=== PATIENT | female | born 1935 | race Caucasian/White ===

== ENCOUNTER → 2023-11-19 12:46 | Outpatient (REF) | payer MEDICARE, SELFPAY ==
[2023-11-19 15:10] LABS: Blood Urea Nitrogen 29 mg/dl (7-17); Calcium 10.6 mg/dl (8.4-10.2); Carbon Dioxide 34 mmol/L (22-30); Chloride 97 mmol/L (98-107); Glucose 134 mg/dl (70-99); Phosphorus 4.1 mg/dl (2.5-4.5); Potassium 3.7 mmol/L (3.5-5.1); Sodium 139 mmol/L (135-145); eGFR > 60.00
== END ==
LOC: HWLAB 12:46
PROVIDERS: ATTENDING PHYSICIAN Internal Medicine Geriatric Medicine
DX: E87.6 Hypokalemia (principal)
CPT/HCPCS: 36415; 80069; 83735

== ENCOUNTER 2024-03-10 06:36 | Day surgery (SDC) | payer MEDICARE, SELFPAY ==
[2024-03-06 09:40] VITALS: BMI 21.5
[2024-03-10 08:39] VITALS: BMI 22.7
[2024-03-10 08:44] VITALS: BMI 22.7
[2024-03-10 08:45] VITALS: BP 144/79
[2024-03-10 08:51] LABS: Urine Albumin Negative (Neg - Trace); Urine Bilirubin Negative (Negative); Urine Character Clear (Clear); Urine Color Yellow; Urine Glucose Negative (Negative); Urine Ketone Negative (Negative); Urine Leukocyte 1+ (Negative); Urine Nitrite Negative (Negative); Urine Occult Blood Negative (Negative); Urine Urobilinogen Negative (Neg - 1+)
[2024-03-10] MEDS: NORMOSOL-R 1000 IV (08:55)
[2024-03-10 09:20] LABS: Urine Bacteria Few (Negative); Urine Squamous Cell 0-2 /LPF (Few)
[2024-03-10 09:21] LABS: Urine Red Blood Cell 0-2 /HPF (0-2); Urine White Cell 0-2 /HPF (0-5)
[2024-03-10 10:23] VITALS: BP 125/66
[2024-03-10 10:30] VITALS: BP 130/73
[2024-03-10 10:45] VITALS: BP 158/76
[2024-03-10 11:00] VITALS: BP 161/76
[2024-03-10 11:15] VITALS: BP 146/64
== END 2024-03-10 11:44 | disposition home or self-care (01) ==
LOC: SDS 06:36
PROVIDERS: ATTENDING PHYSICIAN Urology
DX: T83.110A Breakdown (mechanical) of urinary electronic stimulator device, initial encounter (principal); Y83.1 Surgical operation with implant of artificial internal device as the cause of abnormal reaction of the patient, or of later complication, without mention of misadventure at the time of the procedure; R15.9 Full incontinence of feces; N39.41 Urge incontinence
CPT/HCPCS: 64590; 64561; 72170; 76000; 81003; 81015; 87086; C1767; C1778; C1787; L8681

== ENCOUNTER → 2024-04-29 09:36 | Outpatient (REF) | payer MEDICARE, SELFPAY ==
[2024-04-29 10:15] LABS: Ionized Calcium 1.21 mMOL/L (1.15-1.33)
[2024-04-29 10:42] LABS: ALT (SGPT) 19 U/L (0-35); AST (SGOT) 32 U/L (14-36); Albumin 4.3 g/dl (3.5-5.0); Alkaline Phosphatase 68 U/L (38-126); Blood Urea Nitrogen 31 mg/dl (7-17); Calcium 9.7 mg/dl (8.4-10.2); Carbon Dioxide 32 mmol/L (22-30); Chloride 104 mmol/L (98-107); Glucose 106 mg/dl (70-99); Potassium 3.7 mmol/L (3.5-5.1); Sodium 142 mmol/L (135-145); Total Bilirubin 0.4 mg/dl (0.2-1.3); Total Protein 6.7 g/dl (6.3-8.2); eGFR > 60.00
[2024-04-29 10:58] LABS: Vitamin D, 25-OH*** 67.6 ng/mL (30-80)
[2024-04-30 10:23] LABS: Intact PTH 73.3 pg/ml (13.6-85.8)
== END ==
LOC: REG 09:36
PROVIDERS: ATTENDING PHYSICIAN Hospitalist; FAMILY PHYSICIAN Internal Medicine Geriatric Medicine
DX: E21.3 Hyperparathyroidism, unspecified (principal); E55.9 Vitamin D deficiency, unspecified; M81.0 Age-related osteoporosis without current pathological fracture
CPT/HCPCS: 36415; 80053; 82306; 82330; 83970

== ENCOUNTER → 2024-08-20 11:20 | Outpatient (REF) | payer MEDICARE, SELFPAY | LOC: WDC 11:20 | PROVIDERS: ATTENDING PHYSICIAN Internal Medicine Geriatric Medicine | DX: Z12.31 Encounter for screening mammogram for malignant neoplasm of breast (principal) | CPT/HCPCS: 77063; 77067 ==

== ENCOUNTER → 2024-11-11 10:04 | Outpatient (REF) | payer MEDICARE, SELFPAY | LOC: HWRAD 10:04 | PROVIDERS: ATTENDING PHYSICIAN Internal Medicine Geriatric Medicine | DX: M25.551 Pain in right hip (principal) | CPT/HCPCS: 73502 ==

== ENCOUNTER → 2025-01-05 11:10 | Outpatient (REF) | payer MEDICARE, SELFPAY | LOC: HWRAD 11:10 | PROVIDERS: ATTENDING PHYSICIAN Nurse Practitioner Family; FAMILY PHYSICIAN Internal Medicine Geriatric Medicine | DX: R05.1 Acute cough (principal); R53.83 Other fatigue; R09.89 Other specified symptoms and signs involving the circulatory and respiratory systems | CPT/HCPCS: 71046 ==

== ENCOUNTER → 2025-01-14 09:54 | Outpatient (REF) | payer MEDICARE, SELFPAY ==
[2025-01-14 12:36] LABS: % Basophils 0.6 % (0-2); % Eosinophils 1.8 % (0-6); % Immature Granulocytes 0.3 % (0-0.5); % Lymphocytes 21.4 % (20.5-51.1); % Monocytes 8.6 % (1.7-9.3); % Neutrophils 67.3 % (42.2-75.2); Absolute Eosinophils 0.1 10^3/uL (0-0.7); Absolute Lymphocytes 1.4 10^3/uL (1.2-3.4); Absolute Monocytes 0.6 10^3/uL (0.1-0.6); Absolute Neutrophils 4.4 10^3/uL (1.4-6.5); Hematocrit 38.5 % (37.0-47.0); Hemoglobin 12.4 g/dL (12.0-16.0); Mean Corp Hgb Conc. 32.2 g/dL (33.0-37.0); Mean Corpuscular Hgb 29.1 pg (27.0-31.0); Mean Corpuscular Volume 90.4 fL (81.0-99.0); Mean Platelet Volume 10.2 fL (7.4-10.4); Nucleated Red Blood Cells % 0 %; Platelet Count 257 10^3/uL (130-400); Red Blood Cell Count 4.26 10^6/uL (4.20-5.40); White Blood Cell Count 6.6 10^3/uL (4.8-10.8)
[2025-01-14 12:54] LABS: ALT (SGPT) 18 U/L (0-35); AST (SGOT) 28 U/L (14-36); Albumin 4.5 g/dl (3.5-5.0); Alkaline Phosphatase 83 U/L (38-126); Blood Urea Nitrogen 27 mg/dl (7-17); Calcium 9.6 mg/dl (8.4-10.2); Carbon Dioxide 35 mmol/L (22-30); Chloride 103 mmol/L (98-107); Glucose 107 mg/dl (70-99); HDL Cholesterol 64 mg/dl; LDL Cholesterol, Calculated 84 mg/dl; Potassium 3.9 mmol/L (3.5-5.1); Sodium 144 mmol/L (135-145); Total Bilirubin 0.5 mg/dl (0.2-1.3); Total Cholesterol 180 mg/dl (50-199); Triglyceride 162 mg/dl (10-149); Very Low Density Lipoprotein 32 mg/dl (0-30); eGFR > 60.00
[2025-01-14 12:55] LABS: Urine Albumin 1+ (Neg - Trace); Urine Bilirubin Negative (Negative); Urine Character Clear (Clear); Urine Color Yellow; Urine Glucose Negative (Negative); Urine Ketone Negative (Negative); Urine Leukocyte Negative (Negative); Urine Nitrite Negative (Negative); Urine Occult Blood Negative (Negative); Urine Urobilinogen Negative (Neg - 1+)
[2025-01-14 13:03] LABS: Free T4 1.51 ng/dl (0.78-2.19); Vitamin D, 25-OH*** 73.7 ng/mL (30-80)
[2025-01-14 13:16] LABS: TSH 0.79 uIU/ml (0.47-4.68)
[2025-01-14 13:56] LABS: Urine Bacteria Few (Negative); Urine Mucus Few; Urine Red Blood Cell 0-2 /HPF (0-2); Urine White Cell 0-2 /HPF (0-5)
== END ==
LOC: HWLAB 09:54
PROVIDERS: ATTENDING PHYSICIAN Nurse Practitioner Family
DX: R05.1 Acute cough (principal); R53.83 Other fatigue; R09.89 Other specified symptoms and signs involving the circulatory and respiratory systems; F41.8 Other specified anxiety disorders; I10 Essential (primary) hypertension; K21.9 Gastro-esophageal reflux disease without esophagitis; M81.0 Age-related osteoporosis without current pathological fracture; E03.9 Hypothyroidism, unspecified; E55.9 Vitamin D deficiency, unspecified; I51.7 Cardiomegaly; E78.5 Hyperlipidemia, unspecified; F41.9 Anxiety disorder, unspecified; Z91.81 History of falling; Z13.89 Encounter for screening for other disorder; M25.551 Pain in right hip; Z01.89 Encounter for other specified special examinations
CPT/HCPCS: 36415; 80053; 80061; 81003; 81015; 82306; 84439; 84443; 85025

== ENCOUNTER → 2025-01-22 09:33 | Outpatient (REF) | payer MEDICARE, SELFPAY | LOC: HWRAD 09:33 | PROVIDERS: ATTENDING PHYSICIAN Hospitalist; FAMILY PHYSICIAN Internal Medicine Geriatric Medicine | DX: M81.0 Age-related osteoporosis without current pathological fracture (principal) | CPT/HCPCS: 77080 ==

== ENCOUNTER → 2025-02-18 11:03 | Outpatient (REF) | payer MEDICARE, SELFPAY | LOC: HWRAD 11:03 | PROVIDERS: ATTENDING PHYSICIAN Internal Medicine Geriatric Medicine | DX: Z91.81 History of falling (principal); I10 Essential (primary) hypertension; K21.9 Gastro-esophageal reflux disease without esophagitis; M81.0 Age-related osteoporosis without current pathological fracture; J18.9 Pneumonia, unspecified organism | CPT/HCPCS: 71046 ==

== ENCOUNTER → 2025-02-20 14:04 | Outpatient (REF) | payer MEDICARE, SELFPAY | LOC: RAD 14:04 | PROVIDERS: ATTENDING PHYSICIAN Internal Medicine Geriatric Medicine | DX: J98.4 Other disorders of lung (principal) | CPT/HCPCS: 71270; Q9967 ==